=== PATIENT | female | born 1935 | race Caucasian/White ===

== ENCOUNTER → 2017-09-09 | Outpatient (CLI) | payer MEDICARE ==
[~2017-09-09] MED LIST: ACLI400A2 IH; ALBU8.5H2 IH; ASPI-892 PO; BENZ200C25 PO; BUDE6HFA IH; CLOP75TA69 PO; CYAN100053 IJ; DESV50TA PO; DILT180C PO; FURO40TA PO; HYDR-3454 PO; LEVO500T69 PO; LEVO75TA6 PO; LISI-552 PO; MAGNESIUM POTASSIUM; NAPR220C11 PO; OMEP20TA2 PO; PRD20T PO; SPRN25T PO
--- NOTE | 2017-09-09 10:52 | Diagnostic Imaging Report ---
INDICATION: Leg edema. TECHNIQUE: Grayscale with color-flow and Doppler waveform evaluation of the bilateral lower extremity deep venous systems. CORRELATION STUDY: None FINDINGS: Color and grayscale sonographic images demonstrate no intraluminal defect within the visualized portion of the common femoral, superficial femoral and/or popliteal veins to suggest thrombus formation. These vessels demonstrate normal response to compression and augmentation. No soft tissue fluid collection. IMPRESSION: 1. Negative for deep venous thrombosis of either leg. Dictated by: Dictated on workstation # [id number]
== END ==
LOC: CARD 09:13
PROVIDERS: ATTEND Internal Medicine Cardiovascular Disease
DX: M79.89 Other specified soft tissue disorders (principal); R06.09 Other forms of dyspnea; I10 Essential (primary) hypertension; I48.92 Unspecified atrial flutter; I25.10 Atherosclerotic heart disease of native coronary artery without angina pectoris; Z86.79 Personal history of other diseases of the circulatory system
CPT/HCPCS: 93306; 93970